=== PATIENT | male | born 1980 | race Caucasian/White ===

== ENCOUNTER 2018-05-06 12:39 | Observation (INO) | payer BC, OTHER ==
--- NOTE | 2018-05-06 12:46 | PDOC ---
History of Present Illness - General Chief Complaint: Chest Pain Stated Complaint: CHEST PAIN Time Seen by Provider: 05/06/18 12:46 Past History - Past Medical History Allergies/Adverse Reactions: Allergies Allergy/AdvReac Type Severity Reaction Status Date / Time No Known Allergies Allergy Verified 02/13/14 20:02 Home Medications: Ambulatory Orders Aspirin [Aspirin EC] 81 mg PO DAILY 02/13/14 Ibuprofen [Motrin -] 600 mg PO TID #21 tablet 02/13/14 Cardiac Disorders: Yes (a-fib) GI Disorders: Yes (GERD) - Immunization History Immunization Up to Date: Yes - Suicide/Smoking/Psychosocial Hx Smoking Status: Yes Smoking History: Current every day smoker Number of Cigarettes Smoked Daily: 10 Hx Alcohol Use: No
[2018-05-06 13:12] VITALS: BMI 35.9
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
[2018-05-06] MEDS ORDERED: PANTOPRAZOLE 40 MG TABLET (FP) PO ONE (13:16)
[2018-05-06] MEDS ORDERED: SUCRALFATE 1 GM TABLET (FP) PO ONE (13:17)
[2018-05-06 13:59] LABS: BASO % 0.7 % (0-2.0); EOS % 3.8 % (0-4.5); HEMATOCRIT 41.1 % (35.4-49); HEMOGLOBIN 14.4 GM/dL (11.7-16.9); LYMPH % 26.4 % (8-40); MCH 28.2 pg (25.7-33.7); MEAN CELL VOLUME 80.6 fl (80-96); MEAN PLT VOLUME 7.3 fl (7.5-11.1); MONO % 7.1 % (3.8-10.2); PLATELET COUNT 237 K/MM3 (134-434); RDW 12.9 % (11.9-15.9); WHITE BLOOD COUNT 8.8 K/mm3 (4.0-10.0)
[2018-05-06] MEDS ORDERED: SUCRALFATE 1 GM TABLET (FP) ONE (14:15)
[2018-05-06] MEDS ORDERED: PANTOPRAZOLE SODIUM 40 MG/100 ML BAG IVPB ONE (14:16)
--- NOTE | 2018-05-06 14:36 | EKG ---
Test Reason : Blood Pressure : / mmHG Vent. Rate : 081 BPM Atrial Rate : 081 BPM P-R Int : 194 ms QRS Dur : 094 ms QT Int : 352 ms P-R-T Axes : 046 019 016 degrees QTc Int : 408 ms NORMAL SINUS RHYTHM NORMAL ECG WHEN COMPARED WITH ECG OF 15-JAN-2016 10:16, T WAVE AMPLITUDE HAS DECREASED IN ANTEROLATERAL LEADS Confirmed by URI LOPEZ MD ([id number]) on 05/06/2018 2:35:51 PM Referred By: Confirmed By:URI LOPEZ MD
[2018-05-06 14:44] LABS: ALBUMIN 3.8 g/dl (3.4-5.0); ALK PHOS 75 U/L (45-117); ANION GAP 9 MMOL/L (8-16); BILIRUBIN,TOTAL 0.3 mg/dL (0.2-1); BLOOD UREA NITROGEN 18 mg/dL (7-18); CALCIUM 9.3 mg/dL (8.5-10.1); CHLORIDE 104 mmol/L (98-107); CO2 25 mmol/L (21-32); GLUCOSE,RANDOM 94 mg/dL (74-106); LIPASE 168 U/L (73-393); POTASSIUM 4.1 mmol/L (3.5-5.1); SGOT/AST 34 U/L (15-37); SGPT/ALT 49 U/L (13-61); SODIUM 138 mmol/L (136-145); TOT PROT 7.5 g/dl (6.4-8.2)
[2018-05-06] MEDS ORDERED: ASPIRIN 325 MG ENTERIC COATED TABLET (FP) PO ONE (14:47)
[2018-05-06] MEDS ORDERED: ASPIRIN 325 MG ENTERIC COATED TABLET (FP) ONE (14:57)
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
[2018-05-06 15:33] LABS: INR 0.99 (0.83-1.09); PROTHROMBIN TIME (PATIENT) 11.7 SEC (9.7-13.0)
[2018-05-06 15:36] LABS: ACTIVATED PTT 28.7 SECONDS (25.2-36.5)
[2018-05-06 16:43] LABS: N-TERMINAL BNP 17.5 pg/ml (5-125)
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
[2018-05-06] MEDS ORDERED: NITROGLYCERIN SUBLINGUAL 1/150 0.4 MG TAB SL PRN ×2 (18:19→18:20)
--- NOTE | 2018-05-06 18:19 | PN ---
Teaching Attending Note Name of Resident: Harinder Spencer ATTENDING PHYSICIAN STATEMENT I saw and evaluated the patient. I reviewed the resident's note and discussed the case with the resident. I agree with the resident's findings and plan as documented. SUBJECTIVE: Chest discomfort resolved, currently pain free. No fever/chills/ cough/sputum/hemoptysis. No abdominal pain/vomiting/diarrhea. OBJECTIVE: Afebrile, Hemodynamically Stable. Last Vital Signs Temp Pulse Resp BP Pulse Ox 98.6 F 78 18 174/64 H 99 05/06/18 15:01 05/06/18 15:01 05/06/18 15:01 05/06/18 15:01 05/06/18 15:01 HEENT - Atraumatic, Normocephalic. Heart - S1, S2, RRR Lungs - clear to auscultation, no crackles/wheeze. Abdomen - Soft, non-tender. Bowel Sounds normal. Extremities - no edema. small area of tenderness Left inner aspect of dobbins above ankle small bump - no surrounding erythema. No calf tenderness. Laboratory Results - last 24 hr 05/06/18 05/06/18 05/06/18 13:15 13:52 14:45 WBC 8.8 RBC 5.10 Hgb 14.4 Hct 41.1 MCV 80.6 MCH 28.2 MCHC 35.0 RDW 12.9 Plt Count 237 MPV 7.3 L Absolute Neuts (auto) 5.5 Neutrophils % 62.0 Lymphocytes % 26.4 Monocytes % 7.1 Eosinophils % 3.8 Basophils % 0.7 Nucleated RBC % 0 PT with INR 11.70 INR 0.99 PTT (Actin FS) 28.7 D-Dimer Sodium 138 Potassium 4.1 Chloride 104 Carbon Dioxide 25 Anion Gap 9 BUN 18 Creatinine 1.0 Creat Clearance w eGFR > 60 Random Glucose 94 Calcium 9.3 Magnesium 2.0 Total Bilirubin 0.3 AST 34 ALT 49 Alkaline Phosphatase 75 Creatine Kinase 452 H Creatine Kinase Index 0.6 CK-MB (CK-2) 2.9 Troponin I 0.06 H B-Natriuretic Peptide 17.5 Total Protein 7.5 Albumin 3.8 Lipase 168 ASSESSMENT AND PLAN: 38 year old female with an episode of Atrial Fibrillation (5 years ago, s/p chemical cardioversion in ED, no further episodes, not on AC), GERD s/p Hpylori treatment, currently presents with chest pain, onset yesterday evening at rest, lasted till bedtime and again this morning. Severity 10/27, "squeezing' describing a band like sensation in posterior chest and back, lasted hours, with associated nausea, no vomiting. No diaphoresis, lightheadedness. Pain resolved by the time patient arrived in ED and he has been pain free since. 1. Chest Pain, Atypical, possible ischemia ECG - no acute changes. Troponin 0.06 DDIMER neg Admit to telemonitoring with serial troponin measurements Cardiology consultation Aspirin. If troponin trending up, will consider ACS treatment with Heparin drip. Echo ordered. Nitroglycerin prn. 2. L inner aspect of leg small tender swelling, not clinically an abscess or hematoma Will request US. 3. History of 1 episode of Atrial Fibrillation (reverted to SR after cardioversion med in ED 5 years ago) No further episodes. Denies palpitations. Currently in SR. DVT Px - Heparin SQ.
[2018-05-06] MEDS: HEPARIN NA (PORCINE) 5,000 UNITS/ML 1ML VIAL SQ SCH (21:39)
[2018-05-07] MEDS: HEPARIN NA (PORCINE) 5,000 UNITS/ML 1ML VIAL SQ SCH (05:40)
[2018-05-07 09:08] LABS: ANION GAP 7 MMOL/L (8-16); BLOOD UREA NITROGEN 16 mg/dL (7-18); CALCIUM 8.7 mg/dL (8.5-10.1); CHLORIDE 106 mmol/L (98-107); CHOLESTEROL 185 mg/dL (50-200); CO2 26 mmol/L (21-32); GLUCOSE,RANDOM 88 mg/dL (74-106); HDL CHOLESTEROL 45 mg/dL (40-60); POTASSIUM 4.4 mmol/L (3.5-5.1); SODIUM 139 mmol/L (136-145); TRIGLYCERIDES 164 mg/dL (0-150)
[2018-05-07] MEDS ORDERED: CLOPIDOGREL BISULFATE 300 MG TABLET PO ONE (09:23)
[2018-05-07] MEDS ORDERED: HEPARIN NA (PORCINE) 5,000 UNITS/ML 1ML VIAL IVPUSH PRN (09:24)
[2018-05-07] MEDS ORDERED: HEPARIN - 25,000 UNIT in SODIUM CHLORIDE 495 ML IV SCH (09:30)
--- NOTE | 2018-05-07 09:34 | CON.CARD ---
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 Patient agrees to transfer, will arrange.
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
[2018-05-07] MEDS ORDERED: PANTOPRAZOLE 40 MG TABLET (FP) PO SCH (10:00)
[2018-05-07] MEDS ORDERED: ASPIRIN COATED 81 MG TABLET.EC PO SCH (10:00)
[2018-05-07] MEDS ORDERED: METOPROLOL TARTRATE 25 MG TABLET (FP) PO SCH (10:00)
[2018-05-07] MEDS ORDERED: PT OWN MED DRAWER 7, Y5N ONE (10:09)
--- NOTE | 2018-05-07 10:11 | ECHO ---
Version: 1 Name: BABATUNDE JARAMILLO Exam: Adult Echocardiogram Study Date: 05/07/2018, 8:39 AM Age: 38 Years MMode/2D Measurements & Calculations IVSd: 0.81 cm LVIDs: 3.5 cm LVIDd: 5.8 cm LVPWd: 0.88 cm LVOT diam: 2.13 cm Ao root diam: 3.1 cm LA dimension: 3.8 cm Doppler Measurements & Calculations MV E max luis alberto: 65.2 cm/sec Med E/e': 9.9 MV A max luis alberto: 71.1 cm/sec Med Peak E' Luis Alberto: 6.6 cm/sec MV E/A: 0.92 Lat E/e': 6.2 Lat Peak E' Luis Alberto: 10.5 cm/sec Procedure A two-dimensional transthoracic echocardiogram with color flow and Doppler was performed in limited views only. Left Ventricle The left ventricular size, thickness and function are normal. Ejection Fraction = 60-65%. The transm itral spectral Doppler flow pattern is normal for age. The left ventricular wall motion is normal. Right Ventricle The right ventricle is normal in size and function. Atria Normal left and right atrial size and function. Mitral Valve The mitral valve is normal in structure and function. There is no mitral valve stenosis. There is mi ld mitral regurgitation. Tricuspid Valve The tricuspid valve is normal in structure and function. There is mild tricuspid regurgitation. Aortic Valve The aortic valve opens well. No hemodynamically significant valvular aortic stenosis. No aortic regu rgitation is present. Pulmonic Valve The pulmonic valve is normal in structure and function. There is no pulmonic valvular stenosis. Ther e is no pulmonic valvular regurgitation. Great Vessels The aortic root is normal size. Pericardium/Pleura There is no pericardial effusion. Summary Statements The left ventricular size, thickness and function are normal The left ventricular wall motion is normal. The right ventricle is normal in size and function. Ejection Fraction = 60-65%. There is mild mitral regurgitation. There is mild tricuspid regurgitation. The aortic root is normal size. There is no pericardial effusion. MD Rodriguez *Ramon 05/07/2018, 10:10 AM Ordering Physician: Laurent Altamirano Performed By: Paula Victoria
[2018-05-07] MEDS ORDERED: ACETAMINOPHEN 325 MG TABLET (FP) PO ONE (10:45)
[2018-05-07 11:13] VITALS: PULSE 62; TEMP 97.6
--- NOTE | 2018-05-07 11:45 | PN ---
Teaching Attending Note Name of Resident: Johny Colon ATTENDING PHYSICIAN STATEMENT I saw and evaluated the patient. I reviewed the resident's note and discussed the case with the resident. I agree with the resident's findings and plan as documented. SUBJECTIVE: No further chest pain. Currently pain free. No fever/chills/cough/ sputum/hemoptysis. No abdominal pain/vomiting/diarrhea. OBJECTIVE: Afebrile, Hemodynamically Stable. Last Vital Signs Temp Pulse Resp BP Pulse Ox 97.6 F 62 18 133/77 96 05/07/18 10:00 05/07/18 10:00 05/07/18 10:00 05/07/18 10:00 05/07/18 10:00 HEENT - Atraumatic, Normocephalic. Heart - S1, S2, RRR Lungs - clear to auscultation, no crackles/wheeze. Abdomen - Soft, non-tender. Bowel Sounds normal. Extremities - no edema. small area of tenderness Left inner aspect of dobbins above ankle small bump - no surrounding erythema. No calf tenderness. Laboratory Results - last 24 hr 05/06/18 05/06/18 05/06/18 13:15 13:52 14:45 WBC 8.8 RBC 5.10 Hgb 14.4 Hct 41.1 MCV 80.6 MCH 28.2 MCHC 35.0 RDW 12.9 Plt Count 237 MPV 7.3 L Absolute Neuts (auto) 5.5 Neutrophils % 62.0 Lymphocytes % 26.4 Monocytes % 7.1 Eosinophils % 3.8 Basophils % 0.7 Nucleated RBC % 0 PT with INR 11.70 INR 0.99 PTT (Actin FS) 28.7 D-Dimer Sodium 138 Potassium 4.1 Chloride 104 Carbon Dioxide 25 Anion Gap 9 BUN 18 Creatinine 1.0 Creat Clearance w eGFR > 60 Random Glucose 94 Hemoglobin A1c % Calcium 9.3 Magnesium 2.0 Total Bilirubin 0.3 AST 34 ALT 49 Alkaline Phosphatase 75 Creatine Kinase 452 H Creatine Kinase Index 0.6 CK-MB (CK-2) 2.9 Troponin I 0.06 H B-Natriuretic Peptide 17.5 Total Protein 7.5 Albumin 3.8 Triglycerides Cholesterol Total LDL Cholesterol HDL Cholesterol Lipase 168 05/06/18 05/06/18 05/06/18 14:45 16:42 21:00 WBC RBC Hgb Hct MCV MCH MCHC RDW Plt Count MPV Absolute Neuts (auto) Neutrophils % Lymphocytes % Monocytes % Eosinophils % Basophils % Nucleated RBC % PT with INR INR PTT (Actin FS) D-Dimer 359 Sodium Potassium Chloride Carbon Dioxide Anion Gap BUN Creatinine Creat Clearance w eGFR Random Glucose Hemoglobin A1c % Calcium Magnesium Total Bilirubin AST ALT Alkaline Phosphatase Creatine Kinase Creatine Kinase Index CK-MB (CK-2) Troponin I 0.06 H 0.06 H B-Natriuretic Peptide Total Protein Albumin Triglycerides Cholesterol Total LDL Cholesterol HDL Cholesterol Lipase 05/07/18 05/07/18 05:30 06:00 WBC RBC Hgb Hct MCV MCH MCHC RDW Plt Count MPV Absolute Neuts (auto) Neutrophils % Lymphocytes % Monocytes % Eosinophils % Basophils % Nucleated RBC % PT with INR INR PTT (Actin FS) D-Dimer Sodium 139 Potassium 4.4 Chloride 106 Carbon Dioxide 26 Anion Gap 7 L BUN 16 Creatinine 1.0 Creat Clearance w eGFR > 60 Random Glucose 88 Hemoglobin A1c % 5.8 Calcium 8.7 Magnesium Total Bilirubin AST ALT Alkaline Phosphatase Creatine Kinase Creatine Kinase Index CK-MB (CK-2) Troponin I 0.06 H B-Natriuretic Peptide Total Protein Albumin Triglycerides 164 H Cholesterol 185 Total LDL Cholesterol 113 H HDL Cholesterol 45 Lipase Current Medications Generic Name Dose Route Start Last Admin Trade Name Freq PRN Reason Stop Dose Admin Aspirin 81 mg 05/07/18 10:00 05/07/18 09:30 Ecotrin - PO 81 mg DAILY [facility] Administration Atorvastatin Calcium 80 mg 05/07/18 22:00 Lipitor - PO HS GLADYS Heparin Sodium (Porcine) 5,000 unit 05/07/18 09:24 Heparin - IVPUSH PRN PRN Heparin Heparin Sodium (Porcine) 25, 500 mls @ 20 mls/hr 05/07/18 09:30 05/07/18 10: 32 000 unit/ Sodium Chloride IV 1,000 unit/hr TITR GLADYS 20 mls/hr Administration Protocol 1,000 UNIT/HR Metoprolol Tartrate 25 mg 05/07/18 10:00 05/07/18 10:33 Lopressor - PO 25 mg BID [facility] Administration Nitroglycerin 0.4 mg 05/06/18 18:20 Nitrostat - SL Q5M PRN FOR CHEST PAIN Pantoprazole Sodium 40 mg 05/07/18 10:00 05/07/18 09:30 Protonix - PO 40 mg DAILY [facility] Administration ASSESSMENT AND PLAN: 38 year old female with an episode of Atrial Fibrillation (5 years ago, s/p chemical cardioversion in ED, no further episodes, not on AC), GERD s/p Hpylori treatment, admitted with multiple episodes of chest pain, Severity 7/10, described as "squeezing" like a band sensation in anterior chest and back, lasted hours, with associated nausea, no vomiting. No diaphoresis, lightheadedness. Pain resolved by the time patient arrived in ED and he has been pain free since. 1. Chest Pain, possible ischemia ECG - no acute changes. Troponin 0.06 x 4 DDIMER neg No events on Tele Initiated on ACS treatment - Aspirin/Plavix/Heparin drip. Echo - normal EF, no wall motion abnormality. Evaluated by Cardiology - for transfer to [facility] for Cardiac Cath. Nitroglycerin prn. 2. L inner aspect of leg small tender swelling, not clinically an abscess or hematoma US LLE requested. 3. History of 1 episode of Atrial Fibrillation (reverted to SR after cardioversion med in ED 5 years ago) No further episodes. Denies palpitations. Currently in SR. DVT Px - on Heparin drip.
--- NOTE | 2018-05-07 12:01 | DS ---
Physical Exam: SUBJECTIVE: Patient seen and examined at bedside this morning. He endorses resolution of chest pain, and denies acute complaints. OBJECTIVE: Vital Signs Period Temp Pulse Resp BP Sys/Myers Pulse Ox Last 24 Hr 97.6 F-98.6 F 56-80 17-20 116-174/64-109 96-99 PHYSICAL EXAM GENERAL: The patient is awake, alert, and fully oriented, in no acute distress. HEAD: Normal with no signs of trauma. EYES: PERRL, extraocular movements intact, sclera anicteric, conjunctiva clear. ENT: Ears normal, nares patent, oropharynx clear without exudates, moist mucous membranes. NECK: Trachea midline, full range of motion, supple. LUNGS: Breath sounds equal, clear to auscultation bilaterally, no wheezes, no crackles, no accessory muscle use. HEART: Regular rate and rhythm, S1, S2 without murmur, rub or gallop. ABDOMEN: Soft, nontender, nondistended, normoactive bowel sounds, no guarding, no rebound, no hepatosplenomegaly, no masses. EXTREMITIES: 2+ pulses, warm, well-perfused, no edema. NEUROLOGICAL: Cranial nerves II through XII grossly intact. Normal speech. PSYCH: Normal mood, normal affect. SKIN: Warm, dry. LABS Laboratory Results - last 24 hr 05/06/18 05/06/18 05/06/18 13:15 13:52 14:45 WBC 8.8 RBC 5.10 Hgb 14.4 Hct 41.1 MCV 80.6 MCH 28.2 MCHC 35.0 RDW 12.9 Plt Count 237 MPV 7.3 L Absolute Neuts (auto) 5.5 Neutrophils % 62.0 Lymphocytes % 26.4 Monocytes % 7.1 Eosinophils % 3.8 Basophils % 0.7 Nucleated RBC % 0 PT with INR 11.70 INR 0.99 PTT (Actin FS) 28.7 D-Dimer Sodium 138 Potassium 4.1 Chloride 104 Carbon Dioxide 25 Anion Gap 9 BUN 18 Creatinine 1.0 Creat Clearance w eGFR > 60 Random Glucose 94 Hemoglobin A1c % Calcium 9.3 Magnesium 2.0 Total Bilirubin 0.3 AST 34 ALT 49 Alkaline Phosphatase 75 Creatine Kinase 452 H Creatine Kinase Index 0.6 CK-MB (CK-2) 2.9 Troponin I 0.06 H B-Natriuretic Peptide 17.5 Total Protein 7.5 Albumin 3.8 Triglycerides Cholesterol Total LDL Cholesterol HDL Cholesterol Lipase 168 05/06/18 05/06/18 05/06/18 14:45 16:42 21:00 WBC RBC Hgb Hct MCV MCH MCHC RDW Plt Count MPV Absolute Neuts (auto) Neutrophils % Lymphocytes % Monocytes % Eosinophils % Basophils % Nucleated RBC % PT with INR INR PTT (Actin FS) D-Dimer 359 Sodium Potassium Chloride Carbon Dioxide Anion Gap BUN Creatinine Creat Clearance w eGFR Random Glucose Hemoglobin A1c % Calcium Magnesium Total Bilirubin AST ALT Alkaline Phosphatase Creatine Kinase Creatine Kinase Index CK-MB (CK-2) Troponin I 0.06 H 0.06 H B-Natriuretic Peptide Total Protein Albumin Triglycerides Cholesterol Total LDL Cholesterol HDL Cholesterol Lipase 05/07/18 05/07/18 05:30 06:00 WBC RBC Hgb Hct MCV MCH MCHC RDW Plt Count MPV Absolute Neuts (auto) Neutrophils % Lymphocytes % Monocytes % Eosinophils % Basophils % Nucleated RBC % PT with INR INR PTT (Actin FS) D-Dimer Sodium 139 Potassium 4.4 Chloride 106 Carbon Dioxide 26 Anion Gap 7 L BUN 16 Creatinine 1.0 Creat Clearance w eGFR > 60 Random Glucose 88 Hemoglobin A1c % 5.8 Calcium 8.7 Magnesium Total Bilirubin AST ALT Alkaline Phosphatase Creatine Kinase Creatine Kinase Index CK-MB (CK-2) Troponin I 0.06 H B-Natriuretic Peptide Total Protein Albumin Triglycerides 164 H Cholesterol 185 Total LDL Cholesterol 113 H HDL Cholesterol 45 Lipase HOSPITAL COURSE: Date of Admission:05/06/18 Date of Discharge: 05/07/18 Patient is a 38 year old male with history of Afib (s/p chemical conversion, not on anticoagulation) presents with complaint of chest pain. Troponins 0.06 x4. EKG showed normal sinus rhythm at 81 beats per minute. Patient endorsed chest pain resolution during hospitalization. Patient was evaluated by cardiology. Initiated Aspirin, Plavix loading dose, Atorvastatin, Metoprolol and placed on Heparin drip. Patient was transferred to [facility] for cardiac catheterization with cardiology recommendation. Patient instructed to continue Aspirin and Metoprolol, and to follow discharge instructions of physicians at [facility]. Provided follow up referral with primary care physician and cardiology. Minutes to complete discharge: 35 Discharge Summary Reason For Visit: CHEST PAIN Current Active Problems Chest pain (Acute) NSTEMI (non-ST elevated myocardial infarction) (Acute) Condition: Stable - Instructions Diet, Activity, Other Instructions: You were admitted to the hospital for chest pain, and were evaluated by the cell stripper. You are being transferred to [facility] for a cardiac catheterization to evaluate the blood vessels of your heart. Continue taking your home medications as directed. You will begin taking Aspirin 81mg daily Begin taking Metoprolol 25mg every 12 hours (twice a day) Discuss these new medications, in addition to taking Plavix, and Atorvastatin per [facility] cell stripper recommendations after the cardiac catheterization. You will follow up with your primary care physician within two - three days after discharge. Discuss the new medications with your primary care physician. Further, discuss referral for further genetic testing, and Hematology referral regarding increased blood clot formation. You will follow up with cell stripper within one week after discharge. A referral to Dr. Navarro has been provided. Return to the nearest Emergency Department if you experience worsening symptoms fevers, chills, shortness of breath, chest pain, palpitations, abdominal pain, nausea, vomiting. [place]: Please follow up a soft tissue US and Duplex US left lower extremity for left leg pain -ordered, not performed. Patient received Plavix 600mg PO loading dose, Asa 81mg PO, Metoprolol 25mg PO, and Protonix 40mg PO Patient was started on Heparin drip at 20mL / hour Patient has been NPO since breakfast this AM. Referrals: Ronald Omer MD [Primary Care Provider] - Michael Navarro MD [Staff Physician] - Disposition: TRANSFER ACUTE CARE/OTHER HOSP - Home Medications Comprehensive Discharge Medication List: Ambulatory Orders Aspirin Coated [Ecotrin -] 81 mg PO DAILY tablet.ec 05/07/18 Metoprolol Tartrate [Lopressor -] 25 mg PO BID tablet 05/07/18 This patient is new to me today: Yes Date on this admission: 05/07/18 Emergency Visit: Yes ED Registration Date: 05/06/18 Care time: The patient presented to the Emergency Department on the above date and was hospitalized for further evaluation of their emergent condition. Critical Care patient: No - Discharge Referral Referred to [facility] Med P.C.: No
[2018-05-07 12:22] VITALS: BP 138/78
[2018-05-07] MEDS ORDERED: ATORVASTATIN CA 80 MG TABLET (FP) PO SCH (22:00)
== END 2018-05-07 12:22 | disposition short-term general hospital (02) ==
LOC: JER 12:39 → JERBED 17:45 → J4S 21:02
PROC: 3E033GC Introduction of Other Therapeutic Substance into Peripheral Vein, Percutaneous Approach (ICD-10-PCS; principal; 2018-05-06)
PROC: 3E013GC Introduction of Other Therapeutic Substance into Subcutaneous Tissue, Percutaneous Approach (ICD-10-PCS; 2018-05-06)
DX: I21.4 Non-ST elevation (NSTEMI) myocardial infarction (principal); R07.89 Other chest pain; R77.8 Other specified abnormalities of plasma proteins; I48.0 Paroxysmal atrial fibrillation; K21.9 Gastro-esophageal reflux disease without esophagitis; Z79.82 Long term (current) use of aspirin; Z87.891 Personal history of nicotine dependence
CPT/HCPCS: 36415; 71045-TC-FY; 80048; 80053; 80061; 82550; 82553; 83036; 83690; 83721; 83735; 83880; 84484; 85025; 85379; 85610; 85730; 93005; 93010; 93306-TC; 99283-25; G0378; J1644

== ENCOUNTER 2018-11-19 20:22 | Emergency (ER) | payer BC ==
[2018-11-19 20:34] VITALS: BP 160/105; PULSE 96; TEMP 98.2; BMI 31.1
--- NOTE | 2018-11-19 20:35 | PDOC ---
Rapid Medical Evaluation Medical Evaluation: Allergies Allergy/AdvReac Type Severity Reaction Status Date / Time No Known Allergies Allergy Verified 05/06/18 13:04 I have performed a brief in-person evaluation of this patient. The patient presents with a chief complaint of: C/O squeezing sensation across chest along with SOB x 2-2.5 days; was seen 04/2018 for CP, seen by cardiology and transferred for cath which was normal; was told he had microvascular disease Pertinent physical exam findings: In NAD I have ordered the following: Labs, EKG, CXR The patient will proceed to the ED for further evaluation. 11/19/18 20:33
--- NOTE | 2018-11-19 20:42 | PDOC ---
History of Present Illness - General Chief Complaint: Chest Pain Stated Complaint: CHEST PAIN & WEEKNESS Time Seen by Provider: 11/19/18 20:32 Past History - Past Medical History Allergies/Adverse Reactions: Allergies Allergy/AdvReac Type Severity Reaction Status Date / Time No Known Allergies Allergy Verified 05/06/18 13:04 Home Medications: Ambulatory Orders Aspirin Coated [Ecotrin -] 81 mg PO DAILY tablet.ec 05/07/18 Metoprolol Tartrate [Lopressor -] 25 mg PO BID tablet 05/07/18 Cardiac Disorders: Yes (a-fib) COPD: No GI Disorders: Yes (GERD) HTN: Yes - Immunization History Immunization Up to Date: Yes - Suicide/Smoking/Psychosocial Hx Smoking Status: Yes Smoking History: Never smoked Have you smoked in the past 12 months: No Number of Cigarettes Smoked Daily: 10 If you are a former smoker, when did you quit?: 2 years ago Hx Alcohol Use: No Drug/Substance Use Hx: No Substance Use Type: None *Physical Exam - Vital Signs Last Vital Signs Temp Pulse Resp BP Pulse Ox 98.2 F 96 H 19 160/105 H 98 11/19/18 20:32 11/19/18 20:32 11/19/18 20:32 11/19/18 20:32 11/19/18 20:32 ED Treatment Course - LABORATORY CBC & Chemistry Diagram: 11/19/18 21:49 11/19/18 21:49 Medical Decision Making - Medical Decision Making 38M with PMH of afib (not on AC), HTN, GERD presenting with chest pain and shortness of breath. Patient was transferred for cath at [facility] when he last had chest pain in April of this year, but it was "clean" and he was told he had microvascular disease. The chest pain is described as "tightness" and "like a vise" that started around 7pm. Patient reports associated shortness of breath , nausea and diaphoresis, but no vomiting. Patients father had a quadruple bypass at age 69 and his mother of a pulmonary embolism at age 59. No hemoptysis, no recent surgical history, no recent immobilization, no hormone use , no history of DVT or PE. Denies fevers and chills. PCP: Dr. Omer Cardio: Dr. Navarro ROS: Constitutional: no fever, no chills HEENT: no throat pain, no dysphagia Cardiovascular: +chest pain, no palpitations Respiratory: no cough, +shortness of breath Gastrointestinal: no abdominal pain, +nausea Genitourinary: no dysuria, no hematuria Musculoskeletal: no myalgia, no arthralgia Skin: no rash, no itching Neurologic: no headache, no weakness PE: General: Awake, alert, and fully oriented, in no acute distress Head: No signs of trauma Eyes: EOMI, sclera anicteric ENT: Moist mucus membranes Neck: Normal ROM, supple Lungs: Lungs clear, Normal breath sounds Cardio: Regular rhythm, S1 and S2 present Abdomen: Soft, nontender. No guarding, no rebound, no masses Extremities: Normal range of motion, Distal pulses present. No BLE edema SKIN: Warm, Dry, normal turgor Neurologic: Cranial nerves II through XII grossly intact. Normal speech ED Courses/MDM: DDX including but not limited to ACS, PE, MSK, PNA Labs, CXR EKG: rate 86, QTc 428, NSR 11/19/18 20:42 CBC WBC 8.0 K/mm3 (4.0-10.0) 11/19/18 21:49 RBC 5.03 M/mm3 (4.00-5.60) 11/19/18 21:49 Hgb 13.9 GM/dL (11.7-16.9) 11/19/18 21:49 Hct 40.8 % (35.4-49) 11/19/18 21:49 MCV 81.1 fl (80-96) 11/19/18 21:49 MCH 27.6 pg (25.7-33.7) 11/19/18 21:49 MCHC 34.1 g/dl (32.0-35.9) 11/19/18 21:49 RDW 13.2 % (11.9-15.9) 11/19/18 21:49 Plt Count 230 K/MM3 (134-434) 11/19/18 21:49 MPV 7.1 fl (7.5-11.1) L 11/19/18 21:49 Absolute Neuts (auto) 4.6 K/mm3 (1.5-8.0) 11/19/18 21:49 Neutrophils % 58.2 % (42.8-82.8) 11/19/18 21:49 Lymphocytes % 30.0 % (8-40) 11/19/18 21:49 Monocytes % 8.1 % (3.8-10.2) 11/19/18 21:49 Eosinophils % 3.4 % (0-4.5) 11/19/18 21:49 Basophils % 0.3 % (0-2.0) 11/19/18 21:49 Nucleated RBC % 0 % (0-0) 11/19/18 21:49 No leukocytosis CMP Sodium 141 mmol/L (136-145) 11/19/18 21:49 Potassium 3.7 mmol/L (3.5-5.1) 11/19/18 21:49 Chloride 106 mmol/L (98-107) 11/19/18 21:49 Carbon Dioxide 27 mmol/L (21-32) 11/19/18 21:49 Anion Gap 8 MMOL/L (8-16) 11/19/18 21:49 BUN 18.6 mg/dL (7-18) H 11/19/18 21:49 Creatinine 1.1 mg/dL (0.55-1.3) 11/19/18 21:49 Est GFR (CKD-EPI)AfAm 97.49 11/19/18 21:49 Est GFR (CKD-EPI)NonAf 84.12 11/19/18 21:49 Random Glucose 104 mg/dL (74-106) 11/19/18 21:49 Calcium 9.1 mg/dL (8.5-10.1) 11/19/18 21:49 Total Bilirubin 0.3 mg/dL (0.2-1) 11/19/18 21:49 AST 24 U/L (15-37) 11/19/18 21:49 ALT 45 U/L (13-61) 11/19/18 21:49 Alkaline Phosphatase 82 U/L (45-117) 11/19/18 21:49 Troponin I 0.02 ng/ml (0.00-0.05) 11/19/18 21:49 Total Protein 7.2 g/dl (6.4-8.2) 11/19/18 21:49 Albumin 3.8 g/dl (3.4-5.0) 11/19/18 21:49 Electrolytes unremarkable BUN mildly elevated Normal Cr Tpn 0.02 D-Dimer normal CXR without acute pathology, my impression 11/19/18 22:54 Given "clean" cath in Apr 2018, an acute ischemic cardiac event is of low suspicion. Patient also with negative D-dimer; DVT/PE also of lower suspicion. 11/19/18 23:02 He will follow-up with his grape pruner HEART score 2 for risk factors and history Patient discharged with return precautions *DC/Admit/Observation/Transfer Diagnosis at time of Disposition: Chest pain Qualifiers: Chest pain type: unspecified Qualified Code(s): R07.9 - Chest pain, unspecified - Discharge Dispostion Disposition: HOME Condition at time of disposition: Stable - Referrals Referrals: Ronald Omer MD [Primary Care Provider] - Michael Navarro MD [Staff Physician] - - Patient Instructions Printed Discharge Instructions: DI for Chest Pain Additional Instructions: You came into the ED for chest pain and shortness of breath. We performed blood work, an EKG, and an Xray which were within normal limits. Follow-up with your primary care doctor or grape pruner in the next 2-3 days to discuss this ED visit and to further evaluate your chest pain. Call and make an appointment at the number provided. Your workup is not complete until you do so. Call for emergency medicine services or go to the emergency room right away if you have symptoms of a heart attack, including: Chest pain, which may feel like a crushing weight A sense of fullness, squeezing, or pressure in the chest Rapid, irregular heartbeat Pain, tingling or numbness in the left shoulder and arm, the neck or jaw, or the right arm Sweating Nausea or vomiting Lightheadedness, weakness, or fainting Shortness of breath If you think you have an emergency, call for medical help right away. - Post Discharge Activity Forms/Work/School Notes: Back to Work
[2018-11-19 21:59] LABS: BASO % 0.3 % (0-2.0); EOS % 3.4 % (0-4.5); HEMATOCRIT 40.8 % (35.4-49); HEMOGLOBIN 13.9 GM/dL (11.7-16.9); MCH 27.6 pg (25.7-33.7); MCHC 34.1 g/dl (32.0-35.9); MEAN CELL VOLUME 81.1 fl (80-96); MEAN PLT VOLUME 7.1 fl (7.5-11.1); MONO % 8.1 % (3.8-10.2); NEUT % 58.2 % (42.8-82.8); PLATELET COUNT 230 K/MM3 (134-434); RBC 5.03 M/mm3 (4.00-5.60); RDW 13.2 % (11.9-15.9)
[2018-11-19 22:13] LABS: INR 1.02 (0.83-1.09)
[2018-11-19 22:16] LABS: ACTIVATED PTT 29.3 SECONDS (25.2-36.5)
[2018-11-19 22:25] LABS: ALBUMIN 3.8 g/dl (3.4-5.0); BILIRUBIN,TOTAL 0.3 mg/dL (0.2-1); BLOOD UREA NITROGEN 18.6 mg/dL (7-18); CALCIUM 9.1 mg/dL (8.5-10.1); CREATININE 1.1 mg/dL (0.55-1.3); POTASSIUM 3.7 mmol/L (3.5-5.1); TOT PROT 7.2 g/dl (6.4-8.2)
--- NOTE | 2018-11-19 22:30 | PDOC ---
Documentation entered by Barbara Rizo SCRIBE, acting as scribe for Aidan Brennan MD. Aidan Brennan MD: This documentation has been prepared by the Darrius ha Adrianna, SCRIBE, under my direction and personally reviewed by me in its entirety. I confirm that the documentation accurately reflects all work, treatment, procedures, and medical decision making performed by me. Attending Attestation - Resident Resident Name: Jessica Patino - [facility] HPI: This patient is a 38 year old male, with a significant PMH of Afib (dx 4 yrs ago ), HTN, and GERD (previous h pylori), who presents with chest pain and shortness of breath for a few hours. Patient notes that at 7pm today, he began experiencing sudden onset chest pain, which he describes as a tightness that is non-pleuritic. He endorses associated SOB, with nausea and diaphoresis. Patient notes one episode of similar symptoms in the past, where he was transferred for a cardiac cath. Allergies: NKDA Surgical history: None Social history: Lives with family. No tobacco, ETOH or drug use. PCP: Dr. Omer - Physicial Exam PE: 11/19/18 22:28 supine in stretcher nad face flushed speaking in full sentences rrr s1 s2 no mrg ctab no wheezing rales or rhonchi abd soft nd no LE edema - Medical Decision Making 11/19/18 22:29 Chest tightness clean cath @ [facility] Apr 2018 HR 95 bpm EKG with isolated TWI in III labs cxr will obtain D - dimer to r/o PE
--- NOTE | 2018-11-21 09:07 | EKG ---
Test Reason : Blood Pressure : / mmHG Vent. Rate : 086 BPM Atrial Rate : 086 BPM P-R Int : 178 ms QRS Dur : 092 ms QT Int : 358 ms P-R-T Axes : 061 027 021 degrees QTc Int : 428 ms NORMAL SINUS RHYTHM WITH SINUS ARRHYTHMIA POSSIBLE LEFT ATRIAL ENLARGEMENT BORDERLINE ECG WHEN COMPARED WITH ECG OF 06-MAY-2018 12:47, NO SIGNIFICANT CHANGE WAS FOUND Confirmed by ADY GROVER MD ([id number]) on 11/21/2018 9:07:12 AM Referred By: Confirmed By:ADY GROVER MD
== END 2018-11-19 23:32 | disposition home or self-care (01) ==
LOC: JER 20:22
DX: R07.9 Chest pain, unspecified (principal); I48.91 Unspecified atrial fibrillation; I10 Essential (primary) hypertension; K21.9 Gastro-esophageal reflux disease without esophagitis; Z98.61 Coronary angioplasty status
CPT/HCPCS: 36415; 71046-TC-FY; 80053; 84484; 85025; 85379; 85610; 85730; 93005; 93010; 99283-25